=== PATIENT | female | born 1965 | race Caucasian/White ===

== ENCOUNTER 2022-01-26 21:57 | Observation (INO) ==
[2022-01-27] MEDS ORDERED: *HR* FentaNYL (PF) 100 MCG/2 ML VIAL IVP ONE ×2 (01:21→02:36)
[2022-01-27 01:49] LABS: Hematocrit 24.3 % (35.3-44.9); Hemoglobin 7.3 g/dL (11.5-15.4); Mean Corpuscular Hemoglobin 20.9 pg (28.0-33.3); Mean Corpuscular Volume 69.6 fL (83.0-100.0); Mean Platelet Volume 9.4 fL (9.4-12.4); Platelet Count 447 K/mcL (140-400); Red Blood Count 3.49 M/mcL (3.82-4.97); Red Cell Distribution Width 18.8 % (11.5-14.5)
[2022-01-27 01:50] LABS: White Blood Count 30.8 K/mcL (4.3-11.1)
[2022-01-27 02:08] LABS: BUN/Creatinine Ratio 18 (6-26); Blood Urea Nitrogen 22 mg/dL (6-20); Carbon Dioxide 25 mEq/L (23-29); Chloride 101 mEq/L (98-107); Glucose 125 mg/dL (70-105); Osmolality,Calculated 281 (280-300); Potassium 3.6 mEq/L (3.5-5.1); Sodium 133 mEq/L (136-145); eGFR For African Americans 53 (> 60); eGFR For Non-African Americans 44 (> 60)
[2022-01-27] MEDS ORDERED: ceFAZolin 1,000 MG in 0.9 % Sodium Chloride 10 ML IVP ONE (02:08)
[2022-01-27 02:27] LABS: Anisocytosis 1+ (Not Present); Dohle Bodies Present (Not Present); Eosinophils # 1.2 K/mcL (0.0-0.6); Hypochromasia Present (Not Present); Lymphocytes # 2.5 K/mcL (0.6-4.6); Monocytes # 1.2 K/mcL (0.0-1.3); Neutrophils # 25.9 K/mcL (1.6-8.9); Poikilocytosis 1+ (Not Present); Toxic Vacuolation Present (Not Present)
[2022-01-27 02:28] LABS: Microcytosis Present (Not Present)
[2022-01-27] MEDS ORDERED: 0.9 % Sodium Chloride 1,000 ML IVC SCH ×2 (04:15→14:00)
[2022-01-27] MEDS ORDERED: *HR* OxyCODONE/APAP 10/325 TABLET PO ONE (08:29)
[2022-01-27] MEDS ORDERED: Gabapentin 400 MG CAPSULE PO ONE (08:29)
[2022-01-27] MEDS ORDERED: Piperacillin/Tazobactam 3.375 GM in 0.9 % Sodium Chloride Mini Bag 100 ML IVPB ONE (08:29)
[2022-01-27] MEDS ORDERED: 0.9 % Sodium Chloride 1,000 ML IVC ONE (08:33)
[2022-01-27 10:07] LABS: C-Reactive Protein > 300 mg/L (Less than 10)
[2022-01-27] MEDS ORDERED: *HR* OxyCODONE Immed Rel 5 MG TABLET PO SCH (13:35)
[2022-01-27] MEDS ORDERED: Morphine Sulfate 2 MG/ML SYRINGE IVP ONE (13:45)
[2022-01-27] MEDS ORDERED: Ondansetron ODT 4 MG TAB.RAPDIS SL PRN (13:59)
[2022-01-27] MEDS ORDERED: Gabapentin 400 MG CAPSULE PO SCH (15:00)
[2022-01-27] MEDS ORDERED: Piperacillin/Tazobactam 3.375 GM in 0.9 % Sodium Chloride Mini Bag 100 ML IVPB SCH (16:00)
[2022-01-27] MEDS ORDERED: Doxycycline 100 MG in 0.9 % Sodium Chloride Mini Bag 100 ML IVPB SCH ×2 (16:00→18:00)
[2022-01-27 16:33] VITALS: BP 112/74; PULSE 98; RESP 22; TEMP 98.7; O2SAT 100
[2022-01-28] MEDS ORDERED: *HR* Enoxaparin 40 MG/0.4 ML SYRINGE SQ SCH (06:00)
[2022-01-28] MEDS ORDERED: BUDESONIDE 3 MG PO SCH (09:00)
[2022-01-28] MEDS ORDERED: PANTOPRAZOLE SODIUM 40 MG PO SCH (09:00)
[2022-01-28] MEDS ORDERED: Loratadine 10 MG TABLET PO SCH (09:00)
== END 2022-01-27 17:46 ==
LOC: INPPIK 21:57 → EMEROOPIK 21:57 → INPPIK 01-27 13:43
PROVIDERS: ADMIT Internal Medicine; ATTEND Internal Medicine